=== PATIENT | female | born 1985 | race Caucasian/White ===

== ENCOUNTER 2016-11-28 15:51 | Emergency (ER) | payer OTHER ==
[~2016-11-28] VITALS: Ht 170.2 cm; Wt 88.7 kg
[2016-11-28 15:53] VITALS: Ht 170.2 cm; Wt 88.7 kg
[2016-11-28] MEDS ORDERED: ONDANSETRON INJ 2 MG/ML 2 ML VIAL IV STA (16:46)
[2016-11-28] MEDS ORDERED: ASMIN/60 INH (16:52)
[2016-11-28] MEDS ORDERED: VNTHFA/IN INH (16:52)
[2016-11-28] MEDS ORDERED: BCPILLS PO (16:52)
[2016-11-28 16:54] LABS: BASO % 0.2 %; BASO ABS # 0.01 K/uL (0-0.2); COMPLETE YES; HEMATOCRIT 38.3 % (37-47); IG% 0.2 %; LYMPH % 19.4 %; LYMPH ABS # 0.82 K/uL (1.2-3.4); MEAN CORPUSCULAR HEMOGLOBIN 30.5 pg (25-34); MEAN CORPUSCULAR HGB CONC 36.3 g/dl (32-36); MEAN PLATELET VOLUME 11.2 fL (7.4-10.4); MONO % 12.3 %; NEUT % 67.9 %; PLATELET COUNT 169 K/uL (130-400); RED BLOOD COUNT 4.56 M/uL (4.2-5.4); WHITE BLOOD COUNT 4.23 K/uL (4.8-10.8)
[2016-11-28] MEDS ORDERED: SODIUM CHLORIDE 0.9% 1000ML 1,000 ML IV ONE ×2 (17:00)
[2016-11-28] MEDS ORDERED: MoRPHine SULFATE 4 MG/ML 1 ML CARP\\VIAL IV ONE (17:00)
[2016-11-28 17:04] LABS: BUN/CREATININE RATIO 8.9 (10-20); CALCIUM 8.5 mg/dl (8.5-10.1); CREATININE 0.62 mg/dl (0.60-1.20); POTASSIUM 2.9 mmol/L (3.5-5.1)
[2016-11-28] MEDS ORDERED: POTASSIUM CHLR 20 MEQ / WTR 20 MEQ in PREMIXED WATER 100 ML IV STA (17:05)
[2016-11-28 17:07] LABS: ALB/GLOB RATIO 0.8 (0.9-2)
[2016-11-28 17:07] LABS: URINE APPEARANCE CLEAR (CLEAR); URINE BILIRUBIN NEG (NEG); URINE COLOR YELLOW; URINE NITRITE NEG (NEG); URINE PH 7.5 (4.5-7.5); URINE SPECIFIC GRAVITY 1.006 (1.000-1.030); UROBILINOGEN POS (NEG); ZZUR CULT IF INDIC CLEAN CATCH NO
[2016-11-28 17:09] LABS: MANUAL MICROSCOPIC REQUIRED? NO; REVIEW REQ? NO
--- NOTE | 2016-11-28 17:49 | DIAGNOSTIC IMAGING REPORT ---
THORACIC SPINE 3 VIEWS ROUTINE CLINICAL HISTORY: Mid to upper back pain. COMPARISON STUDY: Chest radiograph November 28, 2014. FINDINGS: Alignment of the thoracic spine is anatomic. Vertebral body heights are maintained. There is no fracture or suspicious lesion by radiography. Disc spaces are preserved. IMPRESSION: Unremarkable thoracic spine radiographs. Electronically signed by: González Paz M.D. 11/28/2016 5:47 PM Dictated Date/Time: 11/28/2016 5:47 PM
--- NOTE | 2016-11-28 17:50 | DIAGNOSTIC IMAGING REPORT ---
PA CHEST RADIOGRAPH AND UPRIGHT AND SUPINE AP RADIOGRAPHS OF THE ABDOMEN CLINICAL HISTORY: Nausea, vomiting and cough. COMPARISON STUDY: Chest radiograph November 28, [address] of the abdomen October 06, 2013. FINDINGS: Lung volumes are normal. Lungs are clear. There is no pneumothorax or pleural effusion. Cardiac size is normal. Mediastinal contours are normal. There is no evidence of pulmonary edema. There is no free air. The bowel gas pattern is normal. IMPRESSION: 1. No free air or evidence of bowel obstruction. 2. No acute cardiopulmonary findings. Electronically signed by: González Paz M.D. 11/28/2016 5:48 PM Dictated Date/Time: 11/28/2016 5:48 PM
[2016-11-28] MEDS ORDERED: NORCO 5/325MG HOME PACK PO ONE (18:45)
[2016-11-28] MEDS ORDERED: ONDANSETRON HOME PACK 4MG OD TAB PO ONE (18:45)
[2016-11-28] MEDS ORDERED: ONDA4TAB10 SL (18:47)
[2016-11-28] MEDS ORDERED: HYDR-5688 PO (18:47)
[2016-11-28 20:35] VITALS: BP 111/68; PULSE 68; TEMP 36.6; O2SAT 97
--- NOTE | 2016-11-28 23:46 | EMERGENCY ROOM VISIT NOTE ---
History First contact with patient: 16:33 Chief Complaint: BACK PAIN Stated Complaint: SEVERE BACK PAIN History of Present Illness The patient is a 30 year old female who presents to the Emergency Room with complaints of nausea, vomiting, and diarrhea for the past 3 days. The patient states that her symptoms began after eating out with her family earlier this week. She states that over the past 2 days she has had several episodes of vomiting and has only been able to drink small amount of fluid and a few crackers today. She is not taking any pain medication [id number] for her discomfort. She states that after several episodes of vomiting she has developed midthoracic back pain. This pain is distinctly worse with moving around, and improves with lying flat. The patient states the pain in her back is on both sides. She has not had any difficulty with urination. She denies chance of . No recent travel history. She rates her discomfort a 7/ 10. Review of Systems More than 10 systems were reviewed and otherwise negative with the exception of history of present illness. Past Medical/Surgical History No chronic medical disease Social History Smoking Status: Never Smoker Housing Status: lives alone Current/Historical Medications Scheduled Control Pills ( Control Pills), 1 TAB PO DAILY Mometasone Furoate (Asmanex Twisthaler 60 Met), 1 PUFF INH BID Ondasetron Odt (Zofran Odt), 4 MG SL Q6H Scheduled PRN Albuterol Hfa (Ventolin Hfa), 2 PUFFS INH Q4 PRN for SOB/Wheezing Hydrocodone/Acetaminophen 5MG/325MG ([place] 5MG/325MG), 1 TABLET PO Q6 PRN for Pain Allergies Coded Allergies: Clindamycin (Verified Allergy, Unknown, RASH, 07/06/15) Physical Exam Vital Signs Date Time Temp Pulse Resp B/P Pulse Ox O2 Delivery O2 Flow Rate FiO2 11/28/16 20:35 36.6 68 18 111/68 97 11/28/16 18:22 75 18 125/76 98 Room Air 11/28/16 17:48 67 11/28/16 15:53 36.6 82 17 129/83 100 Room Air Physical Exam VITALS: Vitals are noted on the nurse's note and reviewed by myself. Vital signs stable. GENERAL: Well-developed, well-nourished, white female, who is in no acute distress and resting comfortably. Patient is cooperative with the examination. HEAD: Normocephalic atraumatic. EARS: External ear normal. External auditory canals clear, tympanic membranes pearly carrillo without erythema or effusion bilaterally. EYES: Pupils equal round and reactive to light and accommodation. Conjunctivae without injection, sclerae without icterus. Extraocular movements intact. NOSE: Patent, turbinates without inflammation or discharge. MOUTH: Mucous membranes dry. Tonsils not enlarged. Airway patent. NECK: Supple without nuchal rigidity. No lymphadenopathy. No thyromegaly. Cervical spine is nontender. HEART: Regular rate and rhythm without murmurs gallops or rubs. LUNGS: Clear to auscultation bilaterally without wheezes, rales or rhonchi. No retractions or accessory muscle use. ABDOMEN: Positive normal bowel sounds x 4. Soft, nontender, without masses or organomegaly. No guarding or rebound tenderness. MUSCULOSKELETAL: No muscle atrophy, erythema, or edema noted. Full range of motion without joint tenderness in all extremities. There is mild mid thoracic back tenderness bilateral without obvious spasm. No lower back pain noted. No numbness or paresthesias. No rash. NEURO: Patient was alert and oriented to person place and time. CN II through XII grossly intact. Medical Decision & Procedures ER Provider Diagnostic Interpretation: PA CHEST RADIOGRAPH AND UPRIGHT AND SUPINE AP RADIOGRAPHS OF THE ABDOMEN CLINICAL HISTORY: Nausea, vomiting and cough. COMPARISON STUDY: Chest radiograph November 28, [address] of the abdomen October 06, 2013. FINDINGS: Lung volumes are normal. Lungs are clear. There is no pneumothorax or pleural effusion. Cardiac size is normal. Mediastinal contours are normal. There is no evidence of pulmonary edema. There is no free air. The bowel gas pattern is normal. IMPRESSION: 1. No free air or evidence of bowel obstruction. 2. No acute cardiopulmonary findings. THORACIC SPINE 3 VIEWS ROUTINE CLINICAL HISTORY: Mid to upper back pain. COMPARISON STUDY: Chest radiograph November 28, 2014. FINDINGS: Alignment of the thoracic spine is anatomic. Vertebral body heights are maintained. There is no fracture or suspicious lesion by radiography. Disc spaces are preserved. IMPRESSION: Unremarkable thoracic spine radiographs. Laboratory Results 11/28/16 16:35 Red Blood Count 4.56, Mean Corpuscular Volume 84.0, Mean Corpuscular Hemoglobin 30.5, Mean Corpuscular Hemoglobin Concent 36.3, Mean Platelet Volume 11.2, Neutrophils (%) (Auto) 67.9, Lymphocytes (%) (Auto) 19.4, Monocytes (%) (Auto) 12.3, Eosinophils (%) (Auto) 0.0, Basophils (%) (Auto) 0.2, Neutrophils # (Auto ) 2.87, Lymphocytes # (Auto) 0.82, Monocytes # (Auto) 0.52, Eosinophils # (Auto ) 0.00, Basophils # (Auto) 0.01 11/28/16 16:35 Test 11/28/16 16:30 11/28/16 16:35 Urine Color YELLOW Urine Appearance CLEAR (CLEAR) Urine pH 7.5 (4.5-7.5) Urine Specific [place] 1.006 (1.000-1.030) Urine Protein NEG (NEG) Urine Glucose (UA) NEG (NEG) Urine Ketones 2+ (NEG) Urine Occult Blood 2+ (NEG) Urine Nitrite NEG (NEG) Urine Bilirubin NEG (NEG) Urine Urobilinogen POS (NEG) Urine Leukocyte Esterase NEG (NEG) Urine WBC (Auto) 0 /hpf (0-5) Urine RBC (Auto) 0-4 /hpf (0-4) Urine Hyaline Casts (Auto) 0 /lpf (0-5) Urine Epithelial Cells (Auto) 10-20 /lpf (0-5) Urine Bacteria (Auto) NEG (NEG) Urine Test NEG (NEG) White Blood Count 4.23 K/uL (4.8-10.8) Red Blood Count 4.56 M/uL (4.2-5.4) Hemoglobin 13.9 g/dL (12.0-16.0) Hematocrit 38.3 % (37-47) Mean Corpuscular Volume 84.0 fL (80-100) Mean Corpuscular Hemoglobin 30.5 pg (25-34) Mean Corpuscular Hemoglobin Concent 36.3 g/dl (32-36) Platelet Count 169 K/uL (130-400) Mean Platelet Volume 11.2 fL (7.4-10.4) Neutrophils (%) (Auto) 67.9 % Lymphocytes (%) (Auto) 19.4 % Monocytes (%) (Auto) 12.3 % Eosinophils (%) (Auto) 0.0 % Basophils (%) (Auto) 0.2 % Neutrophils # (Auto) 2.87 K/uL (1.4-6.5) Lymphocytes # (Auto) 0.82 K/uL (1.2-3.4) Monocytes # (Auto) 0.52 K/uL (0.11-0.59) Eosinophils # (Auto) 0.00 K/uL (0-0.5) Basophils # (Auto) 0.01 K/uL (0-0.2) RDW Standard Deviation 35.3 fL (36.4-46.3) RDW Coefficient of Variation 11.5 % (11.5-14.5) Immature Granulocyte % (Auto) 0.2 % Immature Granulocyte # (Auto) 0.01 K/uL (0.00-0.02) Anion Gap 9.0 mmol/L (3-11) Est Creatinine Clear Calc Drug Dose 150.4 ml/min Estimated GFR () 139.3 Estimated GFR (Non- 120.2 BUN/Creatinine Ratio 8.9 (10-20) Calcium Level 8.5 mg/dl (8.5-10.1) Total Bilirubin 0.5 mg/dl (0.2-1) Aspartate Amino Transf (AST/SGOT) 24 U/L (15-37) Alanine Aminotransferase (ALT/SGPT) 27 U/L (12-78) Alkaline Phosphatase 35 U/L (45-117) Total Protein 7.0 gm/dl (6.4-8.2) Albumin 3.2 gm/dl (3.4-5.0) Globulin 3.8 gm/dl (2.5-4.0) Albumin/Globulin Ratio 0.8 (0.9-2) Lipase 220 U/L (73-393) Medications Administered Medications (Trade) Dose Ordered Sig/Haile Route Start Time Stop Time Status Last Admin Dose Admin Sodium Chloride (Nss 1000ml) 1,000 ml @ 999 mls/hr Q1H1M ONCE IV 11/28/16 17:00 11/28/16 18:00 DC 11/28/16 16:54 999 MLS/HR Morphine Sulfate 4 mg 4 mg NOW ONCE IV 11/28/16 17:00 11/28/16 17:01 DC 11/28/16 16:53 4 MG Sodium Chloride (Nss 1000ml) 1,000 ml @ 999 mls/hr Q1H1M ONCE IV 2/24/17 17:00 11/28/16 18:00 DC 11/28/16 16:54 999 MLS/HR Ondansetron HCl 4 mg 4 mg NOW STAT IV 11/28/16 16:46 11/28/16 16:49 DC 11/28/16 16:54 4 MG Potassium Chloride/Prmx (Kcl 20 Meq / Wtr/Premixed Water) 100 ml @ 50 mls/hr NOW STAT IV 11/28/16 17:05 11/28/16 19:05 DC 11/28/16 18:21 50 MLS/HR Acetaminophen/ Hydrocodone Bitart ([place] 5/325mg Home Pack) 1 homepack UD ONCE PO 11/28/16 18:45 11/28/16 18:46 DC 11/28/16 20:31 1 HOMEPACK Ondansetron HCl (ZOFRAN ODT 4MG Home Pack) 1 homepack UD ONCE PO 11/28/16 18:45 11/28/16 18:46 DC 11/28/16 20:31 1 HOMEPACK ED Course Physical exam and history were performed. Nursing notes and EMR were reviewed. Patient appears to have nausea and vomiting symptoms for the past few days. After some of these episodes she has now developed some mid back pain. The pain is worse with certain movement and better with position. IV access was established and labs were obtained. The patient was hydrated and medicated as above. Because of her symptoms I did elect to perform plain films. The patient's blood work is as above head was reviewed. She does not have a significantly elevated white blood cell count or gross anemia. Her potassium is low at 2.9, and this is likely due to her emesis symptoms. Her potassium was repleted through her IV. The patient's urine does not show signs of infection, but she does have ketones, which also correlates with a likely mild dehydration. The patient's x-rays were nondiagnostic. Overall the patient did have notable improvement of her symptoms after hydration and antiemetics. She does appear stable for discharge home and will be given a course of Zofran and a small amount of Vicodin for her back pain. I suspect that her symptoms are likely viral in origin, causing the vomiting. Her back discomfort is felt to be musculoskeletal. Recommended she follow with her primary care physician in the next few days for recheck of her condition. She was otherwise invited back to the ER with any new, worsening, or concerning symptoms. The chart was completed utilizing [employer] Speech Voice Recognition Software. Grammatical errors, random word insertions, pronoun errors, and incomplete sentences are an occasional consequence of this system due to software limitations, ambient noise, and hardware issues. Any formal questions or concerns about the content, text, or information contained within the body of this dictation should be directly addressed to the provider for clarification. . Medical Decision Differential diagnosis: Etiologies such as gastroenteritis, food borne illness, infections, appendicitis , diverticulitis, inflammatory bowel disease, obstruction, GI bleed, biliary pathology, as well as others were entertained. Impression Primary Impression: Nausea & vomiting Additional Impressions: Mid back pain Low blood potassium Departure Information Prescriptions Ondasetron Odt (ZOFRAN ODT) 4 Mg Tab 4 MG SL Q6H for Nausea, #10 TAB Prov: Layton Weir PA-C 11/28/16 Hydrocodone/Acetaminophen 5MG/325MG ([place] 5MG/325MG) Tab 1 TABLET PO Q6 Y for Pain, #10 TAB For Initial Treatment Prov: Layton Weir PA-C 11/28/16 Referrals Rene Oliver D.O. Pulmonary (PCP) Patient Instructions [facility] Problem Qualifiers
== END 2016-11-28 20:35 | disposition home or self-care (01) ==
LOC: C.EDB 15:52
DX: R11.2 Nausea with vomiting, unspecified (principal); M54.9 Dorsalgia, unspecified; E87.6 Hypokalemia

== ENCOUNTER → 2017-06-24 | Outpatient (CLI) | payer OTHER ==
[~2017-06-24] MED LIST: ASMIN/60 INH; BCPILLS PO; VNTHFA/IN INH
== END | disposition home or self-care (01) ==
LOC: C.PAPS 09:17
PROVIDERS: ATTEND Obstetrics & Gynecology
DX: Z12.4 Encounter for screening for malignant neoplasm of cervix (principal)